=== PATIENT | female | born 1975 | race African-American/Black ===

== ENCOUNTER 2016-12-07 15:55 | Emergency (ER) | payer BC ==
[2016-12-07 16:22] VITALS: O2SAT 100
[2016-12-07] MEDS ORDERED: Sodium Chloride 0.9% 1,000 ML IV ONE (16:36)
[2016-12-07 17:02] LABS: BASO % 0.6 % (0.0-2.0); EOS # 0.2 K/uL (0.0-0.7); EOS % 3.6 % (0.0-4.0); HEMATOCRIT 33.6 % (34.0-47.0); LYMPH # 2.7 K/uL (1.0-4.3); LYMPH % 45.4 % (20.0-40.0); MEAN CELL VOLUME 84.7 fL (81.0-99.0); MEAN CORPUSCULAR HEMOGLOBIN 27.5 pg (27.0-31.0); MEAN CORPUSCULAR HGB CONC 32.4 g/dL (33.0-37.0); MEAN PLATELET VOLUME 9.9 fL (7.2-11.7); MONO # 0.3 K/uL (0.0-0.8); MONO % 5.9 % (0.0-10.0); NRBC % 0.1 % (0.0-2.0); WHITE BLOOD COUNT 5.9 K/uL (4.8-10.8)
[2016-12-07] MEDS ORDERED: Sodium Chloride 0.9% 1,000 ML ONE (17:02)
--- NOTE | 2016-12-07 17:06 | C.PDOC ---
History Of Present Illness 41 year old female presents to Emergency Department for evaluation of intermittent shortness of breath for the past several weeks. Patient was seen by PMD, had blood work done which showed elevated D-dimer. Pt is scheduled for angio chest CT on 12/09/16. Patient states that she had sudden lightheadedness this morning, and felt her heart racing and like she was going to pass out. Pt also states she had a tsyncopal episode on a flight 3 month ago. Since that syncope, she has been having SOB symptoms. Patient denies family history of DVT /PE, ME/CAD, CVA. Patient also denies chest pain, headache, fever, cough. Time Seen by Provider: 12/07/16 16:25 Chief Complaint (Nursing): Shortness Of Breath History Per: Patient History/Exam Limitations: no limitations Onset/Duration Of Symptoms: Days (sevreal weeks) Current Symptoms Are (Timing): Still Present Associated Symptoms: Heart Racing, Light-headedness. denies: Fever, Chills, Sweating, Chest Pain, Bloody Cough, Leg/Calf Pain, Ankle/Leg Swelling, Anxiety, Tingling In Hands Or Face, Musle Spasms In Hands Or Feet Reports Recently: Treated By A Physician Additional History Per: Patient Past Medical History Reviewed: Historical Data, Nursing Documentation, Vital Signs Vital Signs: Last Vital Signs Temp 98 F 12/07/16 19:17 Pulse 54 L 12/07/16 19:17 Resp 20 12/07/16 19:17 BP 110/71 12/07/16 19:17 Pulse Ox 100 12/07/16 19:17 - Medical History PMH: Asthma (childhood) Family History: States: No Known Family Hx - Social History Hx Alcohol Use: Yes Hx Substance Use: No - Immunization History Hx Tetanus Toxoid Vaccination: No Hx Influenza Vaccination: No Hx Pneumococcal Vaccination: No Review Of Systems Except As Marked, All Systems Reviewed And Found Negative. Constitutional: Negative for: Fever, Chills Cardiovascular: Positive for: Palpitations, Light Headedness. Negative for: Chest Pain Respiratory: Positive for: Shortness of Breath. Negative for: Cough, Hemoptysis , Sputum Gastrointestinal: Negative for: Nausea, Vomiting, Abdominal Pain Neurological: Negative for: Headache Physical Exam - Physical Exam Appears: Well, Non-toxic, No Acute Distress, Other (speaking in full sentences) Skin: Warm, Dry Head: Normacephalic Eye(s): bilateral: Normal Inspection Oral Mucosa: Moist Neck: Supple Cardiovascular: Rhythm Regular Respiratory: Normal Breath Sounds, No Rales, No Rhonchi, No Wheezing Gastrointestinal/Abdominal: Normal Exam, Bowel Sounds, Soft, No Tenderness Extremity: Normal ROM, No Pedal Edema, No Calf Tenderness, Capillary Refill (< 2 sec all digits ), No Swelling Neurological/Psych: Oriented x3 ED Course And Treatment - Laboratory Results Result Diagrams: 12/07/16 16:59 12/07/16 16:59 ECG: Interpreted By Me, Viewed By Me (sinus bradycardia 48 bpm, first degree AV block, normal axis, no acute ST/T wave changes) ECG Interpretation: Abnormal (bradycardic ) O2 Sat by Pulse Oximetry: 100 (RA) Pulse Ox Interpretation: Normal - CT Scan/US CTA CHEST Other Rad Studies (CT/US): Read By Radiologist, Radiology Report Reviewed CT/US Interpretation: Name: EVERETTE VILLALOBOS Age: 41Years F Date: 2016. SSN: [id number] : 1975. Study: CTA CHEST Requesting Physician: THANH TURNER. Images: 743. Addl Studies: Provided Clinical History: elevated ddimer SOB. CONFIDENTIALITY STATEMENT. This transmission is confidential and is intended to be a privileged communication. It is intended only for the use of the addressee. Access to this. message by anyone else is unauthorized. If you are not the intended recipient, any disclosure, copying, distribution or any action taken, or omitted to. be taken in reliance on it is prohibited and may be unlawful. If you received this communication in error, please notify us by telephone, so that return. of this document to us can be arranged. Page 1 of 2. EXAM: CT Angiography Chest With Intravenous Contrast. EXAM DATE/TIME: 4:36 PM. CLINICAL HISTORY: 41 years old, female; Pain; Chest pain; Prior surgery; Additional info: Elevated ddimer SOB. TECHNIQUE: Axial computed tomographic angiography images of the chest with intravenous contrast using. pulmonary embolism protocol. All CT scans at this facility use one or more dose reduction. techniques, viz.: automated exposure control; ma/kV adjustment per patient size (including targeted. exams where dose is matched to indication; i.e. head); or iterative reconstruction technique. MIP reconstructed images were created and reviewed. Coronal and sagittal reformatted images were created and reviewed. CONTRAST: 100 mL of administered intravenously. COMPARISON: There are no prior studies for comparison. FINDINGS: Heart, aorta and Pulmonary arteries: The heart is mildly enlarged. There is no pericardial. effusion.There is no aneurysm or dissection. There is perfusion of the 3 arch vessels. There are no. pulmonary emboli. [facility]. [facility] Huan Xiong. Final Radiology Report [id number]. Name: EVERETTE VILLALOBOS Age: 41Years F Date: 2016. SSN: [id number] : 1975. Study: CTA CHEST Requesting Physician: THANH TURNER. Images: 743. Addl Studies: Provided Clinical History: elevated ddimer SOB. CONFIDENTIALITY STATEMENT. This transmission is confidential and is intended to be a privileged communication. It is intended only for the use of the addressee. Access to this. message by anyone else is unauthorized. If you are not the intended recipient, any disclosure, copying, distribution or any action taken, or omitted to. be taken in reliance on it is prohibited and may be unlawful. If you received this communication in error, please notify us by telephone, so that return. of this document to us can be arranged. Page 2 of 2. Lungs and pleural spaces: Trachea and main bronchi are patent.There is no pneumothorax. There. is no lobar or segmental consolidation. There is atelectasis at the lung bases. There is minimal. scarring at the lung bases. There are no effusions. Mediastinum: Fullness in the anterior mediastinum suggest thymic tissue. There are no. pathologically enlarged mediastinal or hilar nodes. The esophagus is not well demonstrated. Thyroid: Thyroid is only partially imaged. Bones/joints: There are no acute osseous abnormalities. Soft tissues: unremarkable. Upper abdomen: There are no acute abnormalities in the visualized portion of the abdomen. IMPRESSION: No aneurysm, dissection or pulmonary embolus, no focal pneumonia. Thank you for allowing us to participate in the care of your patient. Dictated and Authenticated by: Davonte Alejo Progress Note: Blood work, UA, Upreg, CTA chest ordered and reviewed. Patient given IV NS bolus. Reevaluation Time: 19:05 Reassessment Condition: Improved (On reassessment, patient is resting comfortably, denies SOB or palpitations. CTA chest (-) for PE. Patient's heart rate has been in 50s-60s, EKG also shows first degree AV block. Blood work unremarkable. Patient is well appearing and comfortable being discharged, instructed her to follow up with cardiology within 1 week, and with PMD in 1-2 days. She understands she should return to ED if she has any concerning symptoms.) Disposition Counseled Patient/Family Regarding: Studies Performed, Diagnosis, Need For Followup - Disposition Referrals: Ruba Menard DO [Staff Provider] - Griffin Henry MD [Staff Provider] - Disposition: HOME/ ROUTINE Disposition Time: 19:05 Condition: STABLE Additional Instructions: FOLLOW UP WITH YOUR DOCTOR IN 1-2 DAYS, AND WITH CARIOLOGIST, STATION BAGGAGE AGENT WITHIN 1 WEEK RETURN TO ER IF YOU HAVE ANY CONCERNING SYMPTOMS Instructions: Dyspnea (ED) Forms: [employer] (Pashto) Print Language: ZAMBIAN - POA Present On Arrival: None - Clinical Impression Clinical Impression: Shortness of breath, Sinus bradycardia - Scribe Statement The provider has reviewed the documentation as recorded by the Scribe Kelby Valentine All medical record entries made by the Scribe were at my direction and personally dictated by me. I have reviewed the chart and agree that the record accurately reflects my personal performance of the history, physical exam, medical decision making, and the department course for this patient. I have also personally directed, reviewed, and agree with the discharge instructions and disposition.
[2016-12-07 17:07] LABS: RBC URINE 6 /hpf (0-3); URINE BACTERIA RARE (<OCC); URINE BILIRUBIN NEGATIVE (NEGATIVE); URINE COLOR Straw (YELLOW); URINE GLUCOSE (UA) NORMAL (Normal); URINE KETONE NEGATIVE (NEGATIVE); URINE LEUKOCYTE ESTERASE NEG Leu/uL (Negative); URINE PROTEIN NEGATIVE (NEGATIVE); URINE UROBILINOGEN NORMAL mg/dL (0.2-1.0); WBC URINE 1 /hpf (0-5)
[2016-12-07 17:08] LABS: URINE BLOOD 1+ (NEGATIVE)
[2016-12-07 17:12] LABS: CHLORIDE 103 mmol/L (98-107)
[2016-12-07 17:13] LABS: POTASSIUM 3.8 mmol/L (3.6-5.2); SODIUM 135 mmol/L (132-148)
[2016-12-07 17:15] LABS: ALB/GLOB RATIO 1.1 (1.0-2.1); ALKALINE PHOSPHATASE 70 U/L (38-126); ALT/SGPT 35 U/L (9-52); AST/SGOT 19 U/L (14-36); BILIRUBIN,TOTAL 0.3 mg/dL (0.2-1.3); BLOOD UREA NITROGEN 16 mg/dL (7-17); CARBON DIOXIDE 23 mmol/L (22-30); GFR AFRICAN-AMERICAN > 60; TOTAL PROTEIN 7.1 g/dL (6.3-8.3)
[2016-12-07 17:16] LABS: CALCIUM 9.1 mg/dl (8.6-10.4); GLUCOSE,RANDOM 75 mg/dL (65-105)
[2016-12-07 17:30] VITALS: RESP 20
[2016-12-07] MEDS ORDERED: Iodixanol 320 MG/ML 100 ML BOTTLE IV ONE (17:37)
--- NOTE | 2016-12-07 18:40 | CT ---
EXAM: CT Angiography Chest With Intravenous Contrast EXAM DATE/TIME: 12/07/2016 4:36 PM CLINICAL HISTORY: 41 years old, female; Pain; Chest pain; Prior surgery; Additional info: Elevated ddimer SOB TECHNIQUE: Axial computed tomographic angiography images of the chest with intravenous contrast using pulmonary embolism protocol. All CT scans at this facility use one or more dose reduction techniques, viz.: automated exposure control; ma/kV adjustment per patient size (including targeted exams where dose is matched to indication; i.e. head); or iterative reconstruction technique. MIP reconstructed images were created and reviewed. Coronal and sagittal reformatted images were created and reviewed. CONTRAST: 100 mL of [id number] administered intravenously. COMPARISON: There are no prior studies for comparison. FINDINGS: Heart, aorta and Pulmonary arteries: The heart is mildly enlarged. There is no pericardial effusion.There is no aneurysm or dissection. There is perfusion of the 3 arch vessels. There are no pulmonary emboli. Lungs and pleural spaces: Trachea and main bronchi are patent.There is no pneumothorax. There is no lobar or segmental consolidation. There is atelectasis at the lung bases. There is minimal scarring at the lung bases. There are no effusions Mediastinum: Fullness in the anterior mediastinum suggest thymic tissue. There are no pathologically enlarged mediastinal or hilar nodes. The esophagus is not well demonstrated. Thyroid: Thyroid is only partially imaged. Bones/joints: There are no acute osseous abnormalities. Soft tissues: unremarkable Upper abdomen: There are no acute abnormalities in the visualized portion of the abdomen. IMPRESSION: No aneurysm, dissection or pulmonary embolus, no focal pneumonia
[2016-12-07 19:18] VITALS: BP 110/71; PULSE 54; TEMP 98
--- NOTE | 2016-12-09 12:46 | CARD ---
APPROVED REPORT EKG Measurement Heart [id number] <Conclusion> Sinus bradycardia with 1st degree AV block Otherwise normal ECG
== END 2016-12-07 19:17 | disposition home or self-care (01) ==
LOC: C.ER 15:55
DX: R06.02 Shortness of breath (principal); R00.1 Bradycardia, unspecified; I44.0 Atrioventricular block, first degree
CPT/HCPCS: 71275; 80053; 81001; 82550; 82553; 83880; 84484; 84703; 85025; 85610; 85730; 93005; 96360; 99284; J7040; Q9967